=== PATIENT | female | born 1990 | race Caucasian/White ===

== ENCOUNTER 2018-12-26 15:41 | Emergency (ER) | payer OTHER ==
[~2018-12-26] VITALS: Ht 154.9 cm; Wt 86.4 kg
[2018-12-26] MEDS ORDERED: KETOROLAC TROMETHAMINE 30 MG/ML VIAL IM ONE (17:00)
[2018-12-26 19:06] VITALS: BP 108/71
== END 2018-12-26 19:58 | disposition home or self-care (01) ==
LOC: EMS 15:45
DX: S93.602A Unspecified sprain of left foot, initial encounter (principal); W18.2XXA Fall in (into) shower or empty bathtub, initial encounter; Y93.89 Activity, other specified; Y92.89 Other specified places as the place of occurrence of the external cause; Y99.8 Other external cause status
CPT/HCPCS: 29515; 73610; 73630; 81025; 96372; 99283; J1885